=== PATIENT | female | born 1985 | race African-American/Black ===

== ENCOUNTER 2018-08-16 11:14 | Emergency (ER) | payer OTHER | END 2018-08-16 14:30 | disposition home or self-care (01) | LOC: FTE 11:14 | DX: O26.891 Other specified pregnancy related conditions, first trimester (principal); R10.2 Pelvic and perineal pain; Z3A.01 Less than 8 weeks gestation of pregnancy | CPT/HCPCS: 76801; 76817; 99284-25 ==